=== PATIENT | female | born 1970 | race Caucasian/White ===

== ENCOUNTER 2017-08-26 18:37 | Emergency (ER) | payer SELFPAY ==
[2017-08-26 19:31] VITALS: BP 140/91
[2017-08-26] MEDS ORDERED: Phenazopyridine TAB* 100 MG PO ONE (20:07)
[2017-08-26] MEDS ORDERED: Ciprofloxacin TAB* 500 MG PO ONE (20:07)
--- NOTE | 2017-08-26 20:12 | UC ---
Complaint Female HPI - HPI Summary HPI Summary: Patient is an otherwise healthy 46-year-old female presenting to the with chief complaint of urinary frequency, burning, urgency and suprapubic tenderness 5 days. She is stated she has had UTIs in the past but has been several years ago. Denies any gross hematuria. Denies any fevers, sweats, chills. She endorses a fair amount of fatigue. - History Of Current Complaint Chief Complaint: UCGU Stated Complaint: URINARY COMPLAINT Time Seen by Provider: 08/26/17 19:34 Hx Obtained From: Patient Hx Last Menstrual Period: 2 WEEKS AGO ?: No Onset/Duration: Sudden Onset Timing: Constant Severity Initially: Moderate Severity Currently: Moderate Pain Intensity: 4 Pain Scale Used: 0-10 Numeric Aggravating Factor(s): Urination Associated Signs And Symptoms: Positive: Negative - Risk Factors Ectopic Risk Factor: Negative - Allergies/Home Medications Allergies/Adverse Reactions: Allergies Allergy/AdvReac Type Severity Reaction Status Date / Time Penicillins Allergy Hives Verified 08/26/17 19:32 Home Medications: Home Medications Ascorbic Acid TAB* [Vitamin C TAB*] 500 mg PO DAILY 08/26/17 [History Confirmed 08/26/17] Black Cohosh 08/26/17 [History] FLUoxetine CAP* [PROzac CAP*] 20 mg PO DAILY 08/26/17 [History Confirmed ] Magnesium Citrate 08/26/17 [History] PMH/Surg Hx/FS Hx/Imm Hx Previously Healthy: Yes - Surgical History Surgical History: Yes Surgery Procedure, Year, and Place: APPENDECTOMY 2016, RIGHT OVARY AND TUBE REMOVED, HERNIA REPAIR, LEFT TIBIA REPAIR - Social History Occupation: Employed Full-time Lives: With Family Alcohol Use: None Substance Use Type: None Smoking Status (MU): Never Smoked Tobacco Review of Systems Constitutional: Negative Skin: Negative Respiratory: Negative Cardiovascular: Negative Gastrointestinal: Negative Genitourinary: Dysuria, Frequency, Urgency Musculoskeletal: Negative Neurological: Negative Is Patient Immunocompromised?: No All Other Systems Reviewed And Are Negative: Yes Physical Exam Triage Information Reviewed: Yes Appearance: Well-Appearing, Well-Nourished Vital Signs: Initial Vital Signs Temp 99.4 F 08/26/17 19:27 Pulse 65 08/26/17 19:27 Resp 16 08/26/17 19:27 BP 140/91 08/26/17 19:27 Pulse Ox 100 08/26/17 19:27 Vital Signs Reviewed: Yes Eye Exam: Normal Eyes: Positive: Conjunctiva Clear Neck exam: Normal Neck: Positive: Nontender Respiratory Exam: Normal Respiratory: Positive: Chest non-tender Cardiovascular Exam: Normal Cardiovascular: Positive: RRR Musculoskeletal Exam: Normal Musculoskeletal: Positive: Strength Intact Neurological Exam: Normal Neurological: Positive: Alert Psychological: Positive: Normal Response To Family Skin Exam: Normal Complaint Female Dx - Course Course Of Treatment: During the course of treatment, the patient's evaluated for UTI symptoms. UA obtained which shows 3+ leukocytes. No hematuria. She is given Cipro 500 mg and Pyridium 200 mg in the UC. Prescription sent to pharmacy. She understands return precautions. - Differential Dx/Diagnosis Differential Diagnosis/HQI/PQRI: Urinary Tract Infection Provider Diagnoses: UTI Discharge - Sign-Out/Discharge Documenting (check all that apply): Patient Departure - Discharge Plan Condition: Stable Disposition: HOME Prescriptions: Ciprofloxacin TAB* [Cipro 500 MG TAB*] 500 mg PO BID #10 tab Phenazopyridine TAB* [Pyridium 100 mg TAB*] 100 mg PO TID #12 tab Patient Education Materials: Urinary Tract Infection in Women (ED) Referrals: No Primary Care Phys,NOPCP [Primary Care Provider] - Additional Instructions: Drink plenty of fluids including cranberry juice Ciprofloxacin twice daily 5 days Pyridium may be taken up to 3 times daily for urinary discomfort - Billing Disposition and Condition Condition: STABLE Disposition: Home Attestation Statement User Type: Provider - I was available for consult. This patient was seen by the AGNES. The patient was not presented to, seen by, or examined by me. -Steph
== END 2017-08-26 20:20 | disposition home or self-care (01) ==
LOC: UCEAST 18:37
DX: N39.0 Urinary tract infection, site not specified (principal); Z88.0 Allergy status to penicillin
CPT/HCPCS: 36415; 81003; 86703; 87077; 87086; 99202; A9270-GY; G0463

== ENCOUNTER → 2019-01-03 05:51 | Day surgery (SDC) | payer BC ==
[~2019-01-03 05:51] MED LIST: Buffered Lidocaine 1% SYRIN* 1 ML/SYRINGE INTRADERM ONE; Bupivacaine 0.25% SDV PF* 10 ML VIAL INJ ONE; Clindamycin 900 MG/D5W BAG(*) 900 MG/50 ML BAG IVPB ONE; Dexamethasone IV* 4 MG/ML 1 ML (4 MG) ONE; Lactated Ringers 1000 ML Bag* 1,000 ML IV SCH; Lidocaine 1% w EPI 1:100,000* MDV 20 ML VIAL ONE; Lidocaine 2% PF * 5 ML VIAL ONE; Midazolam* 1 MG/ML 2 ML VIAL (2 MG) ONE; Naloxone* 0.4 MG/ML 1 ML VIAL IV PRN; Ondansetron INJ* 2 MG/ML VIAL ONE; Propofol* 10 MG/ML 20 ML BTL ONE; Scopolamine 1.5 mg* PATCH ONE; fentaNYL* 50 MCG/ML 2 ML VIAL (100 MCG VIAL) ONE
[2019-01-03 11:37] VITALS: BP 103/77
== END | disposition home or self-care (01) ==
LOC: OR 05:51
PROVIDERS: ATTEND Plastic Surgery
DX: C44.321 Squamous cell carcinoma of skin of nose (principal); E03.9 Hypothyroidism, unspecified; Z87.891 Personal history of nicotine dependence; F32.9 Major depressive disorder, single episode, unspecified; Z85.828 Personal history of other malignant neoplasm of skin
CPT/HCPCS: 81025; 88305; 88331; 88332; A9270-GY; J1100; J2250; J2405; J2704; J3010; J3490